=== PATIENT | male | born 1950 | race African-American/Black ===

== ENCOUNTER 2022-06-16 12:56 | Inpatient (IN) | payer MEDICARE ==
[~2022-06-16] VITALS: Ht 165.1 cm; Wt 74.4 kg
[~2022-06-16 12:56] MED LIST: MIDAZOLAM HCL 2 MG/2 ML VIAL ONE; PROPOFOL IV EMULSION 10 MG/ML 20 ML VIAL ONE
[2022-06-16] MEDS ORDERED: ACETAMINOPHEN 325 MG TAB ONE (14:27)
[2022-06-16] MEDS ORDERED: ACETAMINOPHEN 325 MG TAB PO ONE (14:30)
[2022-06-16 14:34] LABS: BASOPHILS % 0.2 % (0.0-1.0); HEMATOCRIT 38.3 % (38.2-49.6); HEMOGLOBIN 12.6 g/dL (14.0-18.0); LYMPHOCYTES # (AUTO) 1.8 (1.0-3.2); LYMPHOCYTES % 9.7 % (18.0-39.1); MEAN CORPUSCULAR HEMOGLOBIN 30.7 pg (28-32); MEAN CORPUSCULAR HGB CONC 32.9 g/dL (31-35); MEAN CORPUSCULAR VOLUME 93.2 fL (81-99); MONOCYTES # (AUTO) 1.7 (0.2-0.8); MONOCYTES % 9.4 % (4.4-11.3); NEUTROPHILS # (AUTO) 14.8 (2.1-6.9); NEUTROPHILS % 79.6 % (38.7-80.0); PLATELET COUNT 363 x10e3/uL (140-360); RED BLOOD COUNT 4.11 x10e6/uL (4.3-5.7); RED CELL DISTRIBUTION WIDTH 12.7 % (11.7-14.4)
[2022-06-16 14:45] LABS: ALBUMIN 3.4 g/dL (3.5-5.0); ALBUMIN/GLOBULIN RATIO 0.7 (0.8-2.0); ANION GAP 17.4 mmol/L (8-16); CREATININE, SERUM 1.59 mg/dL (0.72-1.25); POTASSIUM 3.4 mmol/L (3.5-5.1)
[2022-06-16] MEDS ORDERED: ONDANSETRON HCL INJ 2MG/ML 2ML 2 MG/ML VIAL IV STA (14:45)
[2022-06-16] MEDS ORDERED: Morphine 4mg INJECTION 4 MG/ML INJ IV STA (14:45)
[2022-06-16] MEDS ORDERED: SODIUM CHLORIDE 0.9% 1000ML 1,000 ML IV STA (14:45)
[2022-06-16] MEDS ORDERED: Vancomycin IV 1 GM in SODIUM CHLORIDE 0.9% 250ML 250 ML IV ONE (15:15)
[2022-06-16] MEDS ORDERED: ONDANSETRON HCL INJ 2MG/ML 2ML 2 MG/ML VIAL IV PRN (15:15)
[2022-06-16] MEDS ORDERED: LIDOCAINE JELLY 2% 10ML URO-JET ONE (15:51)
[2022-06-16] MEDS ORDERED: BUPIVACAINE 0.5%/EPI 30 ML SDV INJ ONE (15:51)
[2022-06-16] MEDS ORDERED: LIDOCAINE HCL 1% LOCAL INJ 20 ML VIAL ONE (15:52)
[2022-06-16 17:00] VITALS: BP 110/70
[2022-06-16 17:45] VITALS: BP 110/70
[2022-06-16 18:00] VITALS: BP 110/70
[2022-06-16] MEDS: SODIUM CHLORIDE 0.9% 1000ML 1,000 ML IV SCH (18:16)
[2022-06-16] MEDS ORDERED: FENTANYL CITRATE/PF 100MCG/2 ML INJ ONE (19:23)
[2022-06-16 20:00] VITALS: BP 99/45
[2022-06-16] MEDS ORDERED: HYDROCODONE/APAP 7.5MG-325MG 1 EA TAB PO PRN (20:15)
[2022-06-16] MEDS ORDERED: ALBUTEROL SULF 0.083% NEB SOLN 3 ML NEB ONE (20:26)
[2022-06-16] MEDS ORDERED: MEPERIDINE HCL INJ 25 MG/ML VIAL ONE (20:27)
[2022-06-16] MEDS ORDERED: ACETAMINOPHEN 1000 MG/100 ML 100 ML IV ONE (20:29)
[2022-06-17] MEDS: METRONIDAZOLE 500MG/NS 100ML 100 ML IV SCH ×4 (00:24→17:19)
[2022-06-17] MEDS: HYDROMORPHONE 1MG/1ML INJ IV PRN ×4 (02:14→17:20)
[2022-06-17 04:00] VITALS: BP_SYST 112; BP_SYST 113; BP_DIAS 73; BP_DIAS 77
[2022-06-17] MEDS: SODIUM CHLORIDE 0.9% 1000ML 1,000 ML IV SCH ×2 (06:34→14:08)
[2022-06-17 06:41] LABS: BASOPHILS % 0.2 % (0.0-1.0); EOSINOPHILS % 0.1 % (0.0-6.0); HEMATOCRIT 30.6 % (38.2-49.6); LYMPHOCYTES # (AUTO) 1.4 (1.0-3.2); LYMPHOCYTES % 8.2 % (18.0-39.1); MEAN CORPUSCULAR HEMOGLOBIN 30.8 pg (28-32); MEAN CORPUSCULAR HGB CONC 32.7 g/dL (31-35); MEAN CORPUSCULAR VOLUME 94.2 fL (81-99); MONOCYTES # (AUTO) 1.1 (0.2-0.8); MONOCYTES % 6.7 % (4.4-11.3); NEUTROPHILS # (AUTO) 14.1 (2.1-6.9); NEUTROPHILS % 83.2 % (38.7-80.0); PLATELET COUNT 301 x10e3/uL (140-360); RED BLOOD COUNT 3.25 x10e6/uL (4.3-5.7); RED CELL DISTRIBUTION WIDTH 12.6 % (11.7-14.4)
[2022-06-17 07:23] LABS: ALBUMIN 2.6 g/dL (3.5-5.0); ALBUMIN/GLOBULIN RATIO 0.6 (0.8-2.0); ANION GAP 15.3 mmol/L (8-16); CALCIUM 8.3 mg/dL (8.4-10.2); CREATININE, SERUM 1.5 mg/dL (0.72-1.25); POTASSIUM 3.3 mmol/L (3.5-5.1)
[2022-06-17 08:00] VITALS: BP 112/77
[2022-06-17 08:42] VITALS: BP 90/66
[2022-06-17] MEDS ORDERED: KETOROLAC TROMETHAMINE 30 MG/ML VIAL IV ONE (11:15)
[2022-06-17 12:07] VITALS: BP 96/72
[2022-06-17] MEDS: POLYETHYLENE GLYCOL 3350 17 GM PACK PO SCH ×2 (13:58→17:19)
[2022-06-17] MEDS: HYDROCODONE/APAP 10MG-325MG TAB PO PRN ×2 (14:41→20:01)
[2022-06-17] MEDS ORDERED: Vancomycin IV 1 GM in SODIUM CHLORIDE 0.9% 250ML 250 ML IV SCH (16:00)
[2022-06-17 16:46] VITALS: BP 106/72
[2022-06-17] MEDS: SENNA-S TABLET PO SCH (17:18)
[2022-06-17] MEDS: CELECOXIB 200 MG CAP PO SCH (17:18)
[2022-06-17 20:00] VITALS: BP 113/70
[2022-06-17] MEDS: DIPHENHYDRAMINE HCL 25 MG CAP PO PRN (20:00)
[2022-06-18] VITALS: BP 131/89
[2022-06-18] MEDS: SODIUM CHLORIDE 0.9% 1000ML 1,000 ML IV SCH ×2 (00:32→07:15)
[2022-06-18] MEDS: HYDROCODONE/APAP 10MG-325MG TAB PO PRN ×2 (00:32→09:54)
[2022-06-18] MEDS: METRONIDAZOLE 500MG/NS 100ML 100 ML IV SCH ×3 (00:32→12:53)
[2022-06-18 04:00] VITALS: BP 122/73
[2022-06-18 06:04] LABS: BASOPHILS # (AUTO) 0.1 (0.0-0.1); BASOPHILS % 0.4 % (0.0-1.0); EOSINOPHILS # (AUTO) 0.1 (0.0-0.4); HEMATOCRIT 28.3 % (38.2-49.6); HEMOGLOBIN 9.3 g/dL (14.0-18.0); LYMPHOCYTES # (AUTO) 1.7 (1.0-3.2); LYMPHOCYTES % 13.2 % (18.0-39.1); MEAN CORPUSCULAR HEMOGLOBIN 30.3 pg (28-32); MEAN CORPUSCULAR HGB CONC 32.9 g/dL (31-35); MEAN CORPUSCULAR VOLUME 92.2 fL (81-99); MONOCYTES # (AUTO) 0.7 (0.2-0.8); MONOCYTES % 5.3 % (4.4-11.3); NEUTROPHILS # (AUTO) 10.1 (2.1-6.9); NEUTROPHILS % 78.7 % (38.7-80.0); PLATELET COUNT 286 x10e3/uL (140-360); RED BLOOD COUNT 3.07 x10e6/uL (4.3-5.7); RED CELL DISTRIBUTION WIDTH 12.6 % (11.7-14.4)
[2022-06-18] MEDS: DIPHENHYDRAMINE HCL 25 MG CAP PO PRN (06:15)
[2022-06-18 06:23] LABS: ANION GAP 13.1 mmol/L (8-16); CALCIUM 7.6 mg/dL (8.4-10.2); CREATININE, SERUM 1.6 mg/dL (0.72-1.25); POTASSIUM 3.1 mmol/L (3.5-5.1)
[2022-06-18 08:00] VITALS: BP 122/73
[2022-06-18] MEDS: POLYETHYLENE GLYCOL 3350 17 GM PACK PO SCH (09:00)
[2022-06-18 09:03] VITALS: BP 111/77
[2022-06-18] MEDS: SENNA-S TABLET PO SCH (09:46)
[2022-06-18] MEDS: CELECOXIB 200 MG CAP PO SCH (09:46)
[2022-06-18] MEDS ORDERED: KETOROLAC TROMETHAMINE 30 MG/ML VIAL IV PRN (10:15)
[2022-06-18 14:32] VITALS: BP 133/77
== END 2022-06-18 17:01 | disposition home or self-care (01) | DRG 854 ==
LOC: ER 13:19 → ERHOLD 15:07 → MED/SURG2 16:19
PROVIDERS: ADMIT Internal Medicine; ATTEND Internal Medicine
PROC: 0DBP0ZZ Excision of Rectum, Open Approach (ICD-10-PCS; 2022-06-16)
PROC: 3E03329 Introduction of Other Anti-infective into Peripheral Vein, Percutaneous Approach (ICD-10-PCS; 2022-06-16)
PROC: 0D9P0ZZ Drainage of Rectum, Open Approach (ICD-10-PCS; principal; 2022-06-16 19:13)
DX: A41.9 Sepsis, unspecified organism (principal); K61.4 Intrasphincteric abscess; Z20.822 Contact with and (suspected) exposure to COVID-19; K59.00 Constipation, unspecified; I10 Essential (primary) hypertension; M19.90 Unspecified osteoarthritis, unspecified site
CPT/HCPCS: 0223U; 36415; 80048; 80053; 83605; 85025; 87040; 87071; 87075; 87205; 94799; 99284; J1170; J1885; J2001; J2175; J2250; J2270; J2405; J2543; J3010; J3370; J7030; J7050